=== PATIENT | female | born 1960 | race Caucasian/White ===

== ENCOUNTER 2020-08-28 10:30 | Day surgery (SDC) | payer BC ==
[2020-08-27 12:07] VITALS: BMI 15.2
[2020-08-28] MEDS ORDERED: Lidocaine 1% MPF 2 ML VIAL ONE (12:11)
[2020-08-28] MEDS ORDERED: PROPOFOL 20 ML ONE (12:22)
[2020-08-28] MEDS ORDERED: PROPOFOL 40 ML ONE (12:22)
[2020-08-28] MEDS ORDERED: Glycopyrrolate 0.2 MG/ML 5 ML SYRINGE ONE (12:23)
[2020-08-28] MEDS ORDERED: Ondansetron PF 4 MG/2 ML Vial ONE (12:23)
[2020-08-28] MEDS ORDERED: Lidocaine 1% PF 5 ML VIAL ONE (12:23)
[2020-08-28] MEDS ORDERED: Midazolam HCl 2 mg/2 ml Vial ONE (12:23)
[2020-08-28] MEDS ORDERED: Rocuronium Bromide 10 MG/ML (10ML VIAL) ONE (12:23)
[2020-08-28] MEDS ORDERED: Dexamethasone 20 MG/5 ML VIAL ONE (12:23)
[2020-08-28] MEDS ORDERED: Fentanyl 100 MCG/2 ML VIAL ONE (12:23)
[2020-08-28] MEDS ORDERED: EPINEPHrine 1 MG/ML AMP ONE (12:25)
== END 2020-08-28 14:25 | disposition home or self-care (01) ==
LOC: CSHSDC 10:30
PROVIDERS: ATTEND Otolaryngology Otolaryngic Allergy
PROC: 0CBT8ZX Excision of Right Vocal Cord, Via Natural or Artificial Opening Endoscopic, Diagnostic (ICD-10-PCS; principal; 2020-08-28)
PROC: 0CBV8ZX Excision of Left Vocal Cord, Via Natural or Artificial Opening Endoscopic, Diagnostic (ICD-10-PCS; principal; 2020-08-28)
DX: C32.1 Malignant neoplasm of supraglottis (principal); H61.23 Impacted cerumen, bilateral; R49.0 Dysphonia; R10.84 Generalized abdominal pain
CPT/HCPCS: 88305; 88331; J0171; J1100; J2250; J2405; J2704; J3010